=== PATIENT | male | born 1975 | race Caucasian/White ===

== ENCOUNTER → 2023-03-16 18:01 | Outpatient (CLI) | payer OTHER, SELFPAY ==
[2023-03-16 19:42] LABS: Influenza A - CEPHEID Flu A NEGATIVE (NEGATIVE); Influenza B - CEPHEID Flu B NEGATIVE (NEGATIVE); Respiratory Syncytial Virus POSITIVE (Negative)
[2023-03-16 20:02] LABS: COVID-19 CEPHEID 4-PLEX PCR Negative (Negative)
== END ==
PROVIDERS: Visit Provider Physician Assistant
DX: R05.1 Acute cough (principal)
CPT/HCPCS: 0241U